=== PATIENT | female | born 1975 | race African-American/Black ===

== ENCOUNTER 2019-02-09 13:26 | Emergency (ER) | payer MEDICAID, OTHER, SELFPAY ==
[~2019-02-09] VITALS: Ht 162.6 cm; Wt 66.3 kg
[2019-02-09 13:35] VITALS: BP 156/102
[2019-02-09] MEDS ORDERED: LIDOCAINE 1%-EPI 1:100K, 20ML ONE (13:52)
[2019-02-09] MEDS ORDERED: BUPIVACAINE 0.25% ONE (13:53)
[2019-02-09] MEDS ORDERED: BUPIVACAINE/PF-EPI 0.5% 1:200K INFIL ONE (14:00)
[2019-02-09] MEDS ORDERED: LIDOCAINE 1%-EPI 1:100K, 20ML SQ ONE (14:00)
== END 2019-02-09 14:22 | disposition home or self-care (01) ==
LOC: ED 14:00
DX: K08.89 Other specified disorders of teeth and supporting structures (principal); F17.200 Nicotine dependence, unspecified, uncomplicated
CPT/HCPCS: 64400; 99284; J3490